=== PATIENT | female | born 1970 | race Caucasian/White ===

== ENCOUNTER 2018-12-18 08:28 | Emergency (ER) | payer OTHER ==
--- NOTE | 2018-12-18 08:55 | EDM.PDOC ---
ED HPI GENERAL MEDICAL PROBLEM - General Chief Complaint: Eye Problems Stated Complaint: SOMETHING IN EYE Time Seen by Provider: 12/18/18 08:45 Source of Information: Reports: Patient History Limitations: Reports: No Limitations - History of Present Illness INITIAL COMMENTS - FREE TEXT/NARRATIVE: Patient comes into the emergency department with condition complaints of left eye pain. Patient states her eyes started swelling yesterday morning and has progressively gotten worse. She states that she still able open her eye and she has no visual disturbance however this discomfort, redness, and swelling around the left upper eye has increased. She denies being bit or having any injury to that eye and states that she just noticed it out of the blue. She states the discomfort is also getting worse. She has an extremely busy day today and she would like to get evaluated prior to needing to be to work. Patient has any fever, recent infections, chest pain, shortness of breath, visual changes, swelling in her lower face, dental pain, ear pain, or increase swelling in the back of her throat. Patient states she feels fairly well other than the left eye discomfort. Onset: Sudden, Gradual Duration: Constant Location: Reports: Face Quality: Reports: Burning, Throbbing Severity: Moderate Improves with: Reports: Other (closing her eye) Worsens with: Reports: Movement Context: Reports: Other Associated Symptoms: Reports: No Other Symptoms Left Eye Pain Score (Numeric/FACES): 5 - Related Data Allergies Allergy/AdvReac Type Severity Reaction Status Date / Time No Known Allergies Allergy Verified 12/18/18 08:43 Home Meds: Home Meds Omeprazole 20 mg BID 12/18/18 [History] Sulfamethoxazole/Trimethoprim [Bactrim Ds Tablet] 1 each PO BID 7 Days #14 tablet 12/18/18 [Rx] ED ROS GENERAL - Review of Systems Review Of Systems: ROS reveals no pertinent complaints other than HPI. Constitutional: Reports: No Symptoms Respiratory: Reports: No Symptoms Cardiovascular: Reports: No Symptoms Endocrine: Reports: No Symptoms GI/Abdominal: Reports: No Symptoms : Reports: No Symptoms Musculoskeletal: Reports: No Symptoms Skin: Reports: No Symptoms Neurological: Reports: No Symptoms Psychiatric: Reports: No Symptoms ED EXAM GENERAL W FULL EYE - Physical Exam Exam: See Below Exam Limited By: No Limitations General Appearance: Alert, WD/WN, No Apparent Distress Eye Exam: Bilateral Eye: EOMI, PERRL Visual Acuity (R) 20/: 20 Visual Acuity (L) 20/: 20 With Correction: No Eyelids: Right: Normal Appearance, Left: Edema, Erythema, Other (warm noted entire upper eyelid ) Conjunctiva & Sclera: Bilateral: Normal Appearance Cornea Exam: Bilateral: Normal Appearance Extraocular Movements: Bilateral: Intact Pupils: Normal Accommodation Pupillary Size: Bilateral: 2 mm Pupillary Reaction: Bilateral: Brisk Ears: Normal External Exam, Normal Canal, Hearing Grossly Normal, Normal TMs Nose: Normal Inspection, Normal Mucosa, No Blood Throat/Mouth: Normal Inspection, Normal Lips, Normal Teeth, Normal Gums, Normal Oropharynx, Normal Voice, No Airway Compromise Head: Atraumatic, Normocephalic Neck: Normal Inspection, Supple, Non-Tender, Full Range of Motion Respiratory/Chest: No Respiratory Distress, No Accessory Muscle Use Cardiovascular: Normal Peripheral Pulses, Regular Rate, Rhythm Neurological: Alert, Oriented, Normal Cognition, Normal Gait Psychiatric: Normal Affect, Normal Mood Skin Exam: Warm, Dry, Intact, Normal Color, No Rash Course - Vital Signs Last Recorded V/S: Last Vital Signs Temp 35.5 C 12/18/18 08:30 Pulse 66 12/18/18 08:30 Resp 16 12/18/18 08:30 BP 147/84 H 12/18/18 08:30 Pulse Ox 97 12/18/18 08:30 Departure - Departure Time of Disposition: 08:55 Disposition: Home, Self-Care 01 Clinical Impression: Cellulitis of eyelid Qualifiers: Laterality: left Qualified Code(s): H00.036 - Abscess of eyelid left eye, unspecified eyelid - Discharge Information *PRESCRIPTION DRUG MONITORING PROGRAM REVIEWED*: Not Applicable *COPY OF PRESCRIPTION DRUG MONITORING REPORT IN PATIENT BRENDAN: Not Applicable Prescriptions: Sulfamethoxazole/Trimethoprim [Bactrim Ds Tablet] 1 each PO BID 7 Days #14 tablet Instructions: Cellulitis, Adult, Sulfamethoxazole; Trimethoprim, SMX-TMP tablets, Probiotics Additional Instructions: 1. increase your water intake 2. take antibiotic as prescribed and completely even if feeling better 3. Take a probiotic while taking antibiotics 4. Can use ice over the affected eye 3-4 times a day for discomfort and swelling 5. Follow up with your primary care provider symptoms do not get better or if they worsen 6. Can take Tylenol or ibuprofen as necessary for pain and discomfort 7. Call with any questions or concerns - Assessment/Plan Assessment:: 1. Left eyelid cellulitis Plan: 1. Patient appears nontoxic. Patient was given a prescription for Bactrim twice a day 7 days for a left eye cellulitis. 2. Patient was given education instructions regarding antibiotic use, probiotic use, water intake, [id number] medication use, and follow-up care 3. All questions and concerns were addressed prior to the patient's discharge
== END 2018-12-18 09:00 | disposition home or self-care (01) ==
LOC: VM.ED 08:28
DX: H00.036 Abscess of eyelid left eye, unspecified eyelid (principal)
CPT/HCPCS: 99283